=== PATIENT | female | born 1945 | race Caucasian/White ===

== ENCOUNTER 2018-03-24 01:51 | Inpatient (IN) | payer MEDICARE, OTHER ==
[~2018-03-24] VITALS: Ht 170.2 cm; Wt 62.1 kg
[2018-03-24 02:00] VITALS: BP 163/92
--- NOTE | 2018-03-24 02:00 | NUR ---
ADMITTED A 72 YEAR FEMALE FROM [facility] BROUGHT IN BY [facility] AROUND 0200. ADMITTED FOR DTS. SHE WAS AT COURT YESTERDAY, MADE SEVERAL STATEMENTS THAT SHE WOULD GO HOME AND OVERDOSE ON HER MEDICATIONS, WHEN THE SALESPERSON ART OB[employer]S REPORTED THAT THEY WERE TAKING HER HOUSE AWAY FROM HER. PLACED PATIENT IN BED COMFORTABLY. SHOWS NO S/S OF ANY PAIN AT THIS TIME, NO APPARENT DISTRESS NOTED. RESPIRATION EVEN, BREATHING PATTERN NON-LABORED, ABDOMEN SOFT. SKIN AND BODY ASSESSMENT/PHOTO REFUSED. NOTED DRESSING ON HER LEFT LEG. SHE WANTS HER FRIEND TO BE CALLED, NOTIFY THAT SHE IS ADMITTED. PATIENT IS AWAKE, ALERT, ORIENTED X4. LIVES ALONE, , FAMILY MEMBER IN [place]. PATIENT DEPRESSED, ANXIOUS, CALM, COOPERATIVE, RESPONDS VERY WELL TO QUESTIONNAIRES. DENIES SI/HI. PATIENT IS AMBULATORY, THOUGHT PROCESS INTACT, JUDGEMENT IMPAIRED. BELONGINGS WERE INVENTORIED AND CHECKED FOR CONTRABAND. PATIENT IS UNDER THE PSYCHIATRIC CARE OF DR. NEGRON AND MEDICAL CARE OF MASON GONZALEZ. VALUABLES PLACED TO SAFE. BED LOCKED AND PLACED ON LOWEST POSITION. WILL CONTINUE TO MONITOR Q 15 MINS FOR SAFETY WITH 1:1 SITTER AT THE BEDSIDE.
--- NOTE | 2018-03-24 03:17 | NUR ---
PATIENT REFUSED SKIN AND BODY ASSESSMENT, SHE STATED, " NO"
[2018-03-24] MEDS ORDERED: MAG HYDROX/AL HYDROX/SIMETH 30 ML UDC PO PRN (04:00)
[2018-03-24] MEDS ORDERED: MAGNESIUM HYDROXIDE 30 ML UDC PO PRN (04:00)
[2018-03-24] MEDS ORDERED: ACETAMINOPHEN 325 MG TABLET PO PRN (04:00)
[2018-03-24] MEDS ORDERED: DOXY100C41 PO (05:54)
[2018-03-24] MEDS ORDERED: FAMO20TA8 PO (05:54)
[2018-03-24] MEDS ORDERED: KETO10TA2 PO (05:54)
[2018-03-24] MEDS ORDERED: CARB-92 PO (05:54)
[2018-03-24] MEDS ORDERED: DULO60CA45 PO (05:54)
[2018-03-24] MEDS ORDERED: KETO120S3 TP ×2 (05:54)
[2018-03-24] MEDS ORDERED: MEMA28CA PO (05:54)
[2018-03-24] MEDS ORDERED: FISH1CAP16 PO (05:54)
[2018-03-24] MEDS ORDERED: LEVO50TA8 PO (05:54)
[2018-03-24] MEDS ORDERED: DOCU100C36 PO (05:54)
[2018-03-24] MEDS ORDERED: LEVO200T8 PO (05:54)
[2018-03-24] MEDS ORDERED: BISA5TAB56 PO (05:54)
[2018-03-24] MEDS ORDERED: MULT-213 PO (05:54)
[2018-03-24] MEDS ORDERED: LOTE5DRO3 EACHEYE (05:54)
[2018-03-24] MEDS ORDERED: ZINC50TA4 PO (05:54)
[2018-03-24] MEDS ORDERED: LINA72CA PO (05:54)
[2018-03-24] MEDS ORDERED: UMEC62.5 IH (05:54)
[2018-03-24] MEDS ORDERED: POLY17PO4 PO (05:54)
[2018-03-24] MEDS ORDERED: CYCL30DR OP (05:54)
[2018-03-24] MEDS ORDERED: LOSA25TA13 PO (05:54)
[2018-03-24] MEDS ORDERED: CHOL200013 PO (05:54)
[2018-03-24] MEDS ORDERED: PREG150C PO (05:54)
[2018-03-24] MEDS ORDERED: ASCO10007 PO (05:54)
[2018-03-24] MEDS ORDERED: LIDO30AD10 TP (05:54)
[2018-03-24] MEDS ORDERED: MONT10TA22 GT (05:54)
[2018-03-24] MEDS ORDERED: MELA3TAB PO (05:54)
[2018-03-24] MEDS ORDERED: LEVO5TAB13 PO (05:54)
[2018-03-24] MEDS ORDERED: TRAM50TA2 PO (05:54)
[2018-03-24] MEDS ORDERED: FERR325T23 PO (05:54)
[2018-03-24] MEDS ORDERED: NITR0.4T48 SL (05:54)
[2018-03-24] MEDS ORDERED: VITA200C22 PO (05:54)
--- NOTE | 2018-03-24 06:23 | NUR ---
BLAIR Arreola FOR MED RECON
--- NOTE | 2018-03-24 06:24 | NUR ---
FOR WOUND CONSULT TODAY 03/24/2018. PATIENT HAS WOUND ON HER LEG, REFUSED SKIN ASSESSMENT.
--- NOTE | 2018-03-24 06:24 | NUR ---
MRSA SCREEN NOT DONE, PATIENT REFUSED
--- NOTE | 2018-03-24 06:39 | NUR ---
REFUSED REPEAT VITALS THIS MORNING, NOT COOPERATIVE.
[2018-03-24] MEDS ORDERED: TRAMADOL HCL 50 MG TABLET PO PRN (07:00)
[2018-03-24] MEDS ORDERED: POLYETHYLENE GLYCOL 3350 17 GM POWD.PACK PO PRN (07:00)
[2018-03-24] MEDS ORDERED: BISACODYL (5 MG) 5 MG TABLET.DR PO PRN (08:00)
[2018-03-24] MEDS: CARBIDOPA/LEVODOPA 10/100 MG 1 UDTAB PO SCH ×3 (08:55→17:26)
[2018-03-24] MEDS: LEVOTHYROXINE SODIUM 50 MCG TABLET PO SCH (08:55)
[2018-03-24] MEDS: ASCORBIC ACID 500 MG TABLET PO SCH (08:55)
[2018-03-24 08:56] VITALS: BP 149/94
[2018-03-24] MEDS: CHOLECALCIFEROL 1,000 UNIT TABLET (VIT D3) PO SCH (08:56)
[2018-03-24] MEDS: FAMOTIDINE (20 MG) 20 MG TABLET PO SCH (08:56)
[2018-03-24] MEDS: DOCUSATE SODIUM 100 MG CAPSULE PO SCH ×2 (08:56→17:26)
[2018-03-24] MEDS: LOSARTAN POTASSIUM 25 MG TABLET PO SCH (08:56)
[2018-03-24] MEDS: LIDOCAINE 5% (PATCH) 1 EA PATCH TP SCH (08:58)
[2018-03-24] MEDS ORDERED: FERROUS SULFATE (325 MG) 325 MG/TAB TABLET PO SCH (09:00)
[2018-03-24] MEDS: Fluoxetine 10 mg capsule PO SCH (10:10)
[2018-03-24] MEDS: DULOXETINE HCL 30 MG CAPSULE.DR PO SCH (10:10)
--- NOTE | 2018-03-24 15:28 | NUR ---
RN-CO: Patient denied suicidal ideation. Patient stated she has plans in the future. She also denied hearing voices and visual hallucinations.
--- NOTE | 2018-03-24 15:37 | NUR ---
GPS/RN-NOTES PATIENT C/O LT.AND RT. LOWER BACK PAIN AND REQUESTING FOR PAIN MEDICATION. ULTRAM 50MG P.O GIVEN PRN ORDER. WILL CONT. 1:1 MONITORING FOR SAFETY.
[2018-03-24] MEDS: MONTELUKAST SODIUM (10MG) 10 MG TABLET PO SCH (17:26)
[2018-03-24 20:00] VITALS: BP 150/97
[2018-03-24 20:31] LABS: CREATININE 0.8 mg/dL (0.6-1.3); POTASSIUM 4.5 mmol/L (3.5-5.1)
[2018-03-24 20:37] LABS: BILIRUBIN,TOTAL 0.3 mg/dL (0.2-1.0); MAGNESIUM 2.4 mg/dL (1.8-2.4); PHOSPHORUS 4.3 mg/dL (2.5-4.9); TOTAL PROTEIN, SERUM 7.7 g/dL (6.4-8.2)
[2018-03-24 20:38] LABS: BASOPHILS # (AUTO) 0.1 /CMM (0.0-0.2); BASOPHILS % (AUTO) 0.9 % (0.0-2.0); EOSINOPHILS % (AUTO) 0.2 % (0.0-6.0); HEMATOCRIT 33 % (33-45); HEMOGLOBIN 10.9 g/dL (11.5-14.8); LYMPHOCYTES # (AUTO) 1.5 /CMM (0.8-4.8); LYMPHOCYTES % (AUTO) 19.3 % (20.0-44.0); MEAN CORPUSCULAR HGB CONC 33 g/dl (31.0-36.0); MEAN CORPUSCULAR VOLUME 85 fL (82-100); MONOCYTES # (AUTO) 0.7 /CMM (0.1-1.30); MONOCYTES % (AUTO) 8.7 % (2.0-12.0); NEUTROPHILS # (AUTO) 5.3 /CMM (1.8-8.9); NEUTROPHILS % (AUTO) 70.9 % (43.0-81.0); PLATELET COUNT (AUTO) 454 /CMM (150-450); RDW COEFFICIENT OF VARIATION 14.2 (11.5-15.0); RED BLOOD CELL COUNT(AUTO) 3.85 MIL/uL (4.0-5.2); WHITE BLOOD COUNT (AUTO) 7.5 K/uL (4.3-11.0)
--- NOTE | 2018-03-24 21:04 | NUR ---
GPS RN NOTE: PATIENT C/O GENERALIZED BODY PAIN 08/06, PER PATIENT ULTRAM WAS NOT EFFECTIVE, AND SHE USED TO TAKE NORCO AND OXYCODONE. NOTIFIED DR. GONZALEZ WITH ORDERS GIVEN NOTED AND CARRIED OUT. WILL CONTINUE TO MONITOR Q15MNS FOR SAFETY
[2018-03-24] MEDS: HYDROCODONE/APAP 5/325MG 1 EACH TABLET PO PRN (21:11)
[2018-03-25 08:00] VITALS: BP 167/95
[2018-03-25] MEDS: ASCORBIC ACID 500 MG TABLET PO SCH (08:03)
[2018-03-25] MEDS: CHOLECALCIFEROL 1,000 UNIT TABLET (VIT D3) PO SCH (08:03)
[2018-03-25] MEDS: DULOXETINE HCL 30 MG CAPSULE.DR PO SCH (08:04)
[2018-03-25] MEDS: FAMOTIDINE (20 MG) 20 MG TABLET PO SCH (08:04)
[2018-03-25] MEDS: Fluoxetine 10 mg capsule PO SCH (08:04)
[2018-03-25] MEDS: CARBIDOPA/LEVODOPA 10/100 MG 1 UDTAB PO SCH ×3 (08:04→17:13)
[2018-03-25] MEDS: LOSARTAN POTASSIUM 25 MG TABLET PO SCH (08:04)
[2018-03-25] MEDS: DOCUSATE SODIUM 100 MG CAPSULE PO SCH ×2 (08:04→17:13)
[2018-03-25] MEDS: LEVOTHYROXINE SODIUM 50 MCG TABLET PO SCH (08:04)
[2018-03-25] MEDS: LIDOCAINE 5% (PATCH) 1 EA PATCH TP SCH (08:05)
[2018-03-25] MEDS: DOXYCYCLINE HYCLATE (100 MG) 100 MG TABLET PO SCH ×2 (08:07→17:13)
[2018-03-25] MEDS: HYDROCODONE/APAP 5/325MG 1 EACH TABLET PO PRN (09:11)
[2018-03-25] MEDS: FERROUS SULFATE (325 MG) 325 MG/TAB TABLET PO SCH (12:31)
[2018-03-25] MEDS: AMLODIPINE BESYLATE 2.5 MG TABLET PO SCH (12:33)
[2018-03-25 15:29] LABS: BASOPHILS % (AUTO) 0.3 % (0.0-2.0); EOSINOPHILS % (AUTO) 0.1 % (0.0-6.0); HEMATOCRIT 36 % (33-45); HEMOGLOBIN 12.1 g/dL (11.5-14.8); LYMPHOCYTES # (AUTO) 1.1 /CMM (0.8-4.8); LYMPHOCYTES % (AUTO) 9.7 % (20.0-44.0); MEAN CORPUSCULAR HGB CONC 33 g/dl (31.0-36.0); MEAN CORPUSCULAR VOLUME 84 fL (82-100); MONOCYTES # (AUTO) 0.6 /CMM (0.1-1.30); MONOCYTES % (AUTO) 5.1 % (2.0-12.0); NEUTROPHILS # (AUTO) 9.2 /CMM (1.8-8.9); NEUTROPHILS % (AUTO) 84.8 % (43.0-81.0); PLATELET COUNT (AUTO) 493 /CMM (150-450); RDW COEFFICIENT OF VARIATION 14.1 (11.5-15.0); RED BLOOD CELL COUNT(AUTO) 4.31 MIL/uL (4.0-5.2); WHITE BLOOD COUNT (AUTO) 10.8 K/uL (4.3-11.0)
[2018-03-25 15:51] LABS: CHOLESTEROL 189 mg/dL (<200); HDL CHOLESTEROL 80 mg/dL (40-60); LDL 104 mg/dL (0-99); TRIGLYCERIDES 60 mg/dL (30-150)
[2018-03-25 15:55] VITALS: BP 150/95
[2018-03-25 15:57] LABS: ALBUMIN 3.1 g/dL (3.4-5.0); BILIRUBIN,TOTAL 0.4 mg/dL (0.2-1.0); CALCIUM, SERUM 9.1 mg/dL (8.5-10.1); CREATININE 0.6 mg/dL (0.6-1.3); POTASSIUM 4.1 mmol/L (3.5-5.1); TOTAL PROTEIN, SERUM 8.3 g/dL (6.4-8.2)
[2018-03-25 16:06] LABS: THYROID STIMULATING HORMONE 1.29 uIU/mL (0.358-3.74)
[2018-03-25 16:49] LABS: MAGNESIUM 1.8 mg/dL (1.8-2.4)
[2018-03-25] MEDS: MONTELUKAST SODIUM (10MG) 10 MG TABLET PO SCH (17:13)
[2018-03-25 20:12] VITALS: BP 160/93
[2018-03-25 21:30] VITALS: BP 156/82
[2018-03-26] MEDS: HYDROCODONE/APAP 5/325MG 1 EACH TABLET PO PRN (05:40)
[2018-03-26 08:00] VITALS: BP 157/90
[2018-03-26] MEDS: Fluoxetine 10 mg capsule PO SCH (08:21)
[2018-03-26] MEDS: DULOXETINE HCL 30 MG CAPSULE.DR PO SCH (08:21)
[2018-03-26] MEDS: CHOLECALCIFEROL 1,000 UNIT TABLET (VIT D3) PO SCH (08:21)
[2018-03-26] MEDS: ASCORBIC ACID 500 MG TABLET PO SCH (08:21)
[2018-03-26] MEDS: FAMOTIDINE (20 MG) 20 MG TABLET PO SCH (08:22)
[2018-03-26] MEDS: CARBIDOPA/LEVODOPA 10/100 MG 1 UDTAB PO SCH ×3 (08:22→16:02)
[2018-03-26] MEDS: LEVOTHYROXINE SODIUM 125 MCG TABLET PO SCH (08:22)
[2018-03-26] MEDS: DOXYCYCLINE HYCLATE (100 MG) 100 MG TABLET PO SCH ×2 (08:23→16:09)
[2018-03-26] MEDS: DOCUSATE SODIUM 100 MG CAPSULE PO SCH ×2 (08:23→16:09)
[2018-03-26] MEDS: LOSARTAN POTASSIUM 25 MG TABLET PO SCH (08:24)
[2018-03-26] MEDS: LIDOCAINE 5% (PATCH) 1 EA PATCH TP SCH (08:25)
[2018-03-26] MEDS: AMLODIPINE BESYLATE 2.5 MG TABLET PO SCH (08:25)
--- NOTE | 2018-03-26 12:00 | NUR ---
GPS/RN SPOKE WITH OBSTETRICS NURSE PRACTITIONER KALI REGRADING BP OF 155/90, STATED SHE WOULD ADJUST BP MEDICATION. AWAITING NEW ORDERS.
--- NOTE | 2018-03-26 12:08 | NUR ---
WOUND CARE CONSULT: PT PRESENTS WITH LEFT LOWER LEG REDNESS WITH LARGE SCALES OF SKIN AND IRRITATION, NO DRAINAGE. LEFT LOWER LEG HAS DRY SCABS. LARGE CALLUS NOTED TO RT FOOT. RT AND LEFT ARMS NOTED TO HAVE ABRASIONS (OPEN AND DRY). ALL ABOVE NOTED TO BE PRESENT ON ADMISSION. RECOMMENDATIONS MADE FOR OPEN ABRASIONS ON ARMS. RECOMMEND SURGICAL/PODIATRY CONSULT FOR LEGS AND FEET. PT IS CONTINENT AND AMBULATORY. WILL SEE PRN. JACOBS IN AGREEMENT WITH PLAN OF CARE. Addendum: 03/26/18 at 1212 by PARK HUTCHISON WNDNU Amended: Links added.
[2018-03-26] MEDS: FERROUS SULFATE (325 MG) 325 MG/TAB TABLET PO SCH (12:12)
[2018-03-26 13:21] LABS: BASOPHILS % (AUTO) 0.4 % (0.0-2.0); HEMATOCRIT 36 % (33-45); HEMOGLOBIN 11.9 g/dL (11.5-14.8); LYMPHOCYTES % (AUTO) 17.3 % (20.0-44.0); MEAN CORPUSCULAR HGB CONC 33 g/dl (31.0-36.0); MEAN CORPUSCULAR VOLUME 85 fL (82-100); MONOCYTES # (AUTO) 0.6 /CMM (0.1-1.30); MONOCYTES % (AUTO) 10.1 % (2.0-12.0); NEUTROPHILS # (AUTO) 4.1 /CMM (1.8-8.9); NEUTROPHILS % (AUTO) 72.2 % (43.0-81.0); PLATELET COUNT (AUTO) 351 /CMM (150-450); RED BLOOD CELL COUNT(AUTO) 4.26 MIL/uL (4.0-5.2); WHITE BLOOD COUNT (AUTO) 5.6 K/uL (4.3-11.0)
[2018-03-26 13:32] LABS: CALCIUM, SERUM 8.9 mg/dL (8.5-10.1); CREATININE 0.5 mg/dL (0.6-1.3); MAGNESIUM 1.8 mg/dL (1.8-2.4); POTASSIUM 4.6 mmol/L (3.5-5.1)
[2018-03-26 13:50] LABS: APPEARANCE,URINE CLEAR (CLEAR); BILIRUBIN,URINE NEGATIVE (NEGATIVE); BLOOD, URINE NEGATIVE Ery/uL (NEGATIVE); COLOR,URINE YELLOW (YELLOW); KETONES,URINE TRACE (NEGATIVE); LEUKOCYTE ESTERASE ,URINE NEGATIVE (NEGATIVE); NITRITE, URINE NEGATIVE (NEGATIVE); PROTEIN,URINE NEGATIVE (NEGATIVE); UGLUCOSE NEGATIVE (NEGATIVE); UROBILINOGEN,URINE 0.2 EU/dL (0.2)
[2018-03-26 14:08] LABS: BACTERIA,URINE Rare /HPF (None Seen); RBC,URINE 0-2 /HPF (0-2); SQUAMOUS EPITHELIAL CELL,UR Few /HPF (None Seen); WBC,URINE 0-2 /HPF (0-3)
[2018-03-26] MEDS: BACITRACIN/POLYMYXIN B 15 GM TUBE TP SCH (14:35)
[2018-03-26 16:00] VITALS: BP 137/80
--- NOTE | 2018-03-26 16:50 | NUR ---
SW spoke to Little from [facility] and obtained information regarding placement option for pt. Per Little, pt was accepted to [facility] [address] [facility] [address]; , Pablo Redding Ditching Machine Engineer. Pt also has a conservator, Raf Marques . Sw will follow up to ensure pt is safely and adequately discharged.
[2018-03-26] MEDS: MONTELUKAST SODIUM (10MG) 10 MG TABLET PO SCH (17:49)
[2018-03-26 19:36] VITALS: BP 147/86
[2018-03-27 07:23] LABS: CALCIUM, SERUM 8.6 mg/dL (8.5-10.1); CREATININE 0.6 mg/dL (0.6-1.3); MAGNESIUM 1.7 mg/dL (1.8-2.4); PHOSPHORUS 3.6 mg/dL (2.5-4.9); POTASSIUM 3.8 mmol/L (3.5-5.1)
[2018-03-27 07:33] LABS: BASOPHILS % (AUTO) 0.1 % (0.0-2.0); EOSINOPHILS % (AUTO) 0.2 % (0.0-6.0); HEMATOCRIT 35 % (33-45); HEMOGLOBIN 11.9 g/dL (11.5-14.8); LYMPHOCYTES # (AUTO) 1.2 /CMM (0.8-4.8); MEAN CORPUSCULAR HGB CONC 34 g/dl (31.0-36.0); MEAN CORPUSCULAR VOLUME 84 fL (82-100); MONOCYTES # (AUTO) 0.5 /CMM (0.1-1.30); MONOCYTES % (AUTO) 8.8 % (2.0-12.0); NEUTROPHILS # (AUTO) 4.4 /CMM (1.8-8.9); NEUTROPHILS % (AUTO) 71.9 % (43.0-81.0); PLATELET COUNT (AUTO) 443 /CMM (150-450); RDW COEFFICIENT OF VARIATION 13.5 (11.5-15.0); WHITE BLOOD COUNT (AUTO) 6.2 K/uL (4.3-11.0)
[2018-03-27 08:00] VITALS: BP 144/87
[2018-03-27] MEDS: FAMOTIDINE (20 MG) 20 MG TABLET PO SCH (08:42)
[2018-03-27] MEDS: Fluoxetine 10 mg capsule PO SCH (08:42)
[2018-03-27] MEDS: DOXYCYCLINE HYCLATE (100 MG) 100 MG TABLET PO SCH ×2 (08:43→16:10)
[2018-03-27] MEDS: AMLODIPINE BESYLATE 2.5 MG TABLET PO SCH (08:43)
[2018-03-27] MEDS: LOSARTAN POTASSIUM 25 MG TABLET PO SCH (08:43)
[2018-03-27] MEDS: LEVOTHYROXINE SODIUM 125 MCG TABLET PO SCH (08:43)
[2018-03-27] MEDS: CHOLECALCIFEROL 1,000 UNIT TABLET (VIT D3) PO SCH (08:43)
[2018-03-27] MEDS: DOCUSATE SODIUM 100 MG CAPSULE PO SCH ×2 (08:43→16:10)
[2018-03-27] MEDS: DULOXETINE HCL 30 MG CAPSULE.DR PO SCH (08:43)
[2018-03-27] MEDS: CARBIDOPA/LEVODOPA 10/100 MG 1 UDTAB PO SCH ×3 (08:44→16:10)
[2018-03-27] MEDS: ASCORBIC ACID 500 MG TABLET PO SCH (08:44)
[2018-03-27] MEDS: BACITRACIN/POLYMYXIN B 15 GM TUBE TP SCH (08:44)
[2018-03-27] MEDS: FLUTICASONE/VILANTEROL 1 EACH BLST.W.DEV IH SCH (08:44)
[2018-03-27] MEDS: LIDOCAINE 5% (PATCH) 1 EA PATCH TP SCH (08:44)
[2018-03-27] MEDS ORDERED: Magnesium 1GM/D5W 100ML PREMIX 100 ML IV SCH (09:32)
[2018-03-27] MEDS: FERROUS SULFATE (325 MG) 325 MG/TAB TABLET PO SCH (12:21)
--- NOTE | 2018-03-27 13:24 | NUR ---
Initial Discharge Plan: Pts home address on face sheet is [address] [place] [id number]; . Per psychiatric reports and conservator, Raf Marques, reports pt has lost her home and has been accepted to [facility] and will go there upon discharge. SW will follow up to ensure pt is safely and adequately discharged.
[2018-03-27] MEDS: HYDROCODONE/APAP 5/325MG 1 EACH TABLET PO PRN ×2 (14:50→21:27)
--- NOTE | 2018-03-27 14:50 | NUR ---
GPS/RN PATIENT REPORTS 8/10 GENERALIZED PAIN, ADMINISTERED NORCO 5/325 PER PT REQUEST, WILL CONTINUE TO MONITOR.
[2018-03-27 15:54] VITALS: BP 139/64
[2018-03-27] MEDS: MONTELUKAST SODIUM (10MG) 10 MG TABLET PO SCH (17:13)
[2018-03-27 20:17] VITALS: BP 128/74
[2018-03-28] MEDS: LEVOTHYROXINE SODIUM 125 MCG TABLET PO SCH (07:46)
[2018-03-28 08:00] VITALS: BP 148/95
[2018-03-28] MEDS: DOCUSATE SODIUM 100 MG CAPSULE PO SCH ×2 (09:00→16:07)
[2018-03-28] MEDS: DULOXETINE HCL 30 MG CAPSULE.DR PO SCH (09:17)
[2018-03-28] MEDS: Fluoxetine 10 mg capsule PO SCH (09:17)
[2018-03-28] MEDS: DOXYCYCLINE HYCLATE (100 MG) 100 MG TABLET PO SCH ×2 (09:17→16:06)
[2018-03-28] MEDS: FAMOTIDINE (20 MG) 20 MG TABLET PO SCH (09:17)
[2018-03-28] MEDS: ASCORBIC ACID 500 MG TABLET PO SCH (09:17)
[2018-03-28] MEDS: LOSARTAN POTASSIUM 25 MG TABLET PO SCH (09:17)
[2018-03-28] MEDS: CARBIDOPA/LEVODOPA 10/100 MG 1 UDTAB PO SCH ×3 (09:17→16:06)
[2018-03-28] MEDS: CHOLECALCIFEROL 1,000 UNIT TABLET (VIT D3) PO SCH (09:17)
[2018-03-28] MEDS: MAGNESIUM OXIDE 400 MG TABLET PO SCH (09:18)
[2018-03-28] MEDS: FLUTICASONE/VILANTEROL 1 EACH BLST.W.DEV IH SCH (09:18)
[2018-03-28] MEDS: AMLODIPINE BESYLATE 2.5 MG TABLET PO SCH (09:18)
[2018-03-28] MEDS: LIDOCAINE 5% (PATCH) 1 EA PATCH TP SCH (09:40)
[2018-03-28] MEDS: BACITRACIN/POLYMYXIN B 15 GM TUBE TP SCH (11:41)
[2018-03-28] MEDS: POVIDONE-IODINE OINT 28.4 GM TUBE TP SCH (11:41)
[2018-03-28] MEDS: FERROUS SULFATE (325 MG) 325 MG/TAB TABLET PO SCH (12:37)
[2018-03-28 16:00] VITALS: BP 119/64
[2018-03-28] MEDS: MONTELUKAST SODIUM (10MG) 10 MG TABLET PO SCH (17:04)
[2018-03-28 20:00] VITALS: BP 138/71
--- NOTE | 2018-03-28 20:00 | NUR ---
RN NOTES RECEIVED PT. AWAKE ON BED, SITTER AT BEDSIDE, BILATERAL LOWER EXTREMITIES WITH MULTIPLE SCAB AND REDNESS NOTED, AMBULATE WITH WALKER, [id number], CONTINUE TO MONITOR
[2018-03-28 20:09] VITALS: BP 138/71
[2018-03-28] MEDS: HYDROCODONE/APAP 5/325MG 1 EACH TABLET PO PRN (21:24)
--- NOTE | 2018-03-28 21:27 | NUR ---
RN NOTES COMPLAINED OF TERRIBLE BACK PAIN, PT. HAS LIDODERM PATCH ON HER BACK BUT REFUSED TO BE REMOVED , EXPLAINED THAT IT'S NEED TO BE REMOVED AFTER 12HRS, BUT PT'S TILL REFUSING TO TAKE IT OFF. PT IS ASKING FOR NORCO , NORCO 5/325 MG PO GIVEN ORDERED, V/.S STABLE
[2018-03-29 08:15] VITALS: BP 156/85
[2018-03-29] MEDS: ASCORBIC ACID 500 MG TABLET PO SCH (08:15)
[2018-03-29] MEDS: LEVOTHYROXINE SODIUM 125 MCG TABLET PO SCH (08:15)
[2018-03-29] MEDS: FAMOTIDINE (20 MG) 20 MG TABLET PO SCH (08:15)
[2018-03-29] MEDS: Fluoxetine 10 mg capsule PO SCH (08:15)
[2018-03-29] MEDS: CARBIDOPA/LEVODOPA 10/100 MG 1 UDTAB PO SCH ×3 (08:15→16:22)
[2018-03-29] MEDS: DOCUSATE SODIUM 100 MG CAPSULE PO SCH ×2 (08:16→16:22)
[2018-03-29] MEDS: AMLODIPINE BESYLATE 2.5 MG TABLET PO SCH (08:16)
[2018-03-29] MEDS: DOXYCYCLINE HYCLATE (100 MG) 100 MG TABLET PO SCH ×2 (08:16→16:22)
[2018-03-29] MEDS: CHOLECALCIFEROL 1,000 UNIT TABLET (VIT D3) PO SCH (08:16)
[2018-03-29] MEDS: DULOXETINE HCL 30 MG CAPSULE.DR PO SCH (08:16)
[2018-03-29] MEDS: MAGNESIUM OXIDE 400 MG TABLET PO SCH (08:16)
[2018-03-29] MEDS: LIDOCAINE 5% (PATCH) 1 EA PATCH TP SCH (08:17)
[2018-03-29] MEDS: LOSARTAN POTASSIUM 25 MG TABLET PO SCH (08:17)
[2018-03-29] MEDS: BACITRACIN/POLYMYXIN B 15 GM TUBE TP SCH (08:18)
[2018-03-29] MEDS: FLUTICASONE/VILANTEROL 1 EACH BLST.W.DEV IH SCH (08:18)
[2018-03-29] MEDS: POVIDONE-IODINE OINT 28.4 GM TUBE TP SCH (08:18)
[2018-03-29] MEDS: FERROUS SULFATE (325 MG) 325 MG/TAB TABLET PO SCH (12:20)
--- NOTE | 2018-03-29 13:29 | NUR ---
MARISSA spoke to Pablo Redding from [facility] [address] [facility] [address]; Admissions who stated that pt had been accepted to facility. MARISSA will work with pt, treating team and others to ensure pt is safely and adequately discharged. Addendum: 03/29/18 at 1340 by OBDULIO ANN 03/27/2018
[2018-03-29] MEDS: HYDROCODONE/APAP 5/325MG 1 EACH TABLET PO PRN (15:31)
[2018-03-29 15:51] VITALS: BP 134/80
[2018-03-29] MEDS: MONTELUKAST SODIUM (10MG) 10 MG TABLET PO SCH (17:30)
[2018-03-29 20:00] VITALS: BP 121/65
[2018-03-30 08:00] VITALS: BP 135/71
[2018-03-30] MEDS: LEVOTHYROXINE SODIUM 125 MCG TABLET PO SCH (08:26)
[2018-03-30] MEDS: Fluoxetine 10 mg capsule PO SCH (08:29)
[2018-03-30] MEDS: DOXYCYCLINE HYCLATE (100 MG) 100 MG TABLET PO SCH ×2 (08:30→16:43)
[2018-03-30] MEDS: CHOLECALCIFEROL 1,000 UNIT TABLET (VIT D3) PO SCH (08:30)
[2018-03-30] MEDS: CARBIDOPA/LEVODOPA 10/100 MG 1 UDTAB PO SCH ×3 (08:30→16:43)
[2018-03-30] MEDS: MAGNESIUM OXIDE 400 MG TABLET PO SCH (08:30)
[2018-03-30] MEDS: ASCORBIC ACID 500 MG TABLET PO SCH (08:30)
[2018-03-30] MEDS: DOCUSATE SODIUM 100 MG CAPSULE PO SCH ×2 (08:30→16:43)
[2018-03-30] MEDS: FAMOTIDINE (20 MG) 20 MG TABLET PO SCH (08:30)
[2018-03-30] MEDS: DULOXETINE HCL 30 MG CAPSULE.DR PO SCH (08:30)
[2018-03-30] MEDS: LIDOCAINE 5% (PATCH) 1 EA PATCH TP SCH (08:31)
[2018-03-30] MEDS: LOSARTAN POTASSIUM 25 MG TABLET PO SCH (08:32)
[2018-03-30] MEDS: FLUTICASONE/VILANTEROL 1 EACH BLST.W.DEV IH SCH (08:32)
[2018-03-30] MEDS: AMLODIPINE BESYLATE 2.5 MG TABLET PO SCH (08:32)
[2018-03-30] MEDS: POVIDONE-IODINE OINT 28.4 GM TUBE TP SCH (09:16)
[2018-03-30] MEDS: BACITRACIN/POLYMYXIN B 15 GM TUBE TP SCH (09:16)
--- NOTE | 2018-03-30 10:27 | NUR ---
Pts discharge on this date was cancelled. MARISSA contacted Cristina from [facility] to cancel pts transportation which was scheduled through [facility]. In addition MARISSA spoke to pts conservator, Raf Marques, and Pablo Redding, Store Leader from [facility] to provide them with an update regarding pts discharge; which they were in agreement. In addition, MARISSA faxed inquiry to [facility], attention to Pablo (fax # [phone]). MARISSA will discuss with Dr. Jean Baptiste, pts psychiatrist to inform discharge plan.
[2018-03-30] MEDS: HYDROCODONE/APAP 5/325MG 1 EACH TABLET PO PRN (11:33)
--- NOTE | 2018-03-30 11:34 | NUR ---
GPS/RN-NOTES PATIENT C/O 10/10 GENERALIZED BODY PAIN AND REQUESTING FOR PAIN MEDICATION. NORCO 5/325MG 1 TAB. P.O GIVEN PRN ORDER. WILL CONT MONITORING FOR SAFETY.
[2018-03-30] MEDS: FERROUS SULFATE (325 MG) 325 MG/TAB TABLET PO SCH (12:03)
--- NOTE | 2018-03-30 12:54 | NUR ---
MARISSA spoke to Little from [facility] to reschedule pts transportation. MARISSA Informed Little that pt would most likely discharge on 04/02/18 however discharge was yet to be confirmed by pts psychiatrist, Dr. Jean Baptiste. Little agreed to have [facility] transport on stand applications systems engineer for Monday. MARISSA will follow up with Little on Monday to confirm transportation by 9:15 am. MARISSA also provided Little with cell phone # in order to ensure pt is appropriately discharged.
[2018-03-30 16:53] VITALS: BP 124/76
[2018-03-30] MEDS: MONTELUKAST SODIUM (10MG) 10 MG TABLET PO SCH (17:37)
[2018-03-30 20:00] VITALS: BP 141/72
--- NOTE | 2018-03-30 21:40 | NUR ---
PT HAS EPISODES OF SCRATCHING HER LOWER LEGS. PROVIDE AND EDUCATE PT REGARDING SKIN MGT. KEPT CLEAN AND DRY. ENDORSE TO NEXT SHIFT NURSE FOR ANN.
[2018-03-31 08:07] VITALS: BP 157/99
[2018-03-31] MEDS: LEVOTHYROXINE SODIUM 125 MCG TABLET PO SCH (08:27)
[2018-03-31] MEDS: DULOXETINE HCL 30 MG CAPSULE.DR PO SCH (08:27)
[2018-03-31] MEDS: DOXYCYCLINE HYCLATE (100 MG) 100 MG TABLET PO SCH ×2 (08:27→16:47)
[2018-03-31] MEDS: CHOLECALCIFEROL 1,000 UNIT TABLET (VIT D3) PO SCH (08:27)
[2018-03-31] MEDS: FAMOTIDINE (20 MG) 20 MG TABLET PO SCH (08:27)
[2018-03-31] MEDS: Fluoxetine 10 mg capsule PO SCH (08:28)
[2018-03-31] MEDS: CARBIDOPA/LEVODOPA 10/100 MG 1 UDTAB PO SCH ×3 (08:28→16:47)
[2018-03-31] MEDS: MAGNESIUM OXIDE 400 MG TABLET PO SCH (08:28)
[2018-03-31] MEDS: AMLODIPINE BESYLATE 2.5 MG TABLET PO SCH (08:28)
[2018-03-31] MEDS: LOSARTAN POTASSIUM 25 MG TABLET PO SCH (08:28)
[2018-03-31] MEDS: DOCUSATE SODIUM 100 MG CAPSULE PO SCH ×2 (08:28→16:47)
[2018-03-31] MEDS: ASCORBIC ACID 500 MG TABLET PO SCH (08:28)
[2018-03-31] MEDS: LIDOCAINE 5% (PATCH) 1 EA PATCH TP SCH (08:30)
[2018-03-31] MEDS: FLUTICASONE/VILANTEROL 1 EACH BLST.W.DEV IH SCH (08:50)
[2018-03-31] MEDS: POVIDONE-IODINE OINT 28.4 GM TUBE TP SCH (09:56)
[2018-03-31] MEDS: BACITRACIN/POLYMYXIN B 15 GM TUBE TP SCH (09:56)
[2018-03-31] MEDS: FERROUS SULFATE (325 MG) 325 MG/TAB TABLET PO SCH (12:04)
[2018-03-31 16:21] VITALS: BP 144/79
[2018-03-31] MEDS: MONTELUKAST SODIUM (10MG) 10 MG TABLET PO SCH (18:03)
[2018-03-31 19:59] LABS: URINE SODIUM, RANDOM 113 mmol/l (40-220)
[2018-03-31 20:00] VITALS: BP 159/79
[2018-03-31 20:04] LABS: OSMOLALITY,URINE 628 mOS/kg (340-1090)
[2018-04-01 06:43] LABS: CALCIUM, SERUM 8.5 mg/dL (8.5-10.1); CREATININE 0.5 mg/dL (0.6-1.3); MAGNESIUM 1.8 mg/dL (1.8-2.4); PHOSPHORUS 3.9 mg/dL (2.5-4.9); POTASSIUM 4.3 mmol/L (3.5-5.1)
[2018-04-01 06:45] LABS: THYROID STIMULATING HORMONE 4.476 uIU/mL (0.358-3.74); URIC ACID 1.9 mg/dL (2.6-7.2)
--- NOTE | 2018-04-01 07:30 | NUR ---
GPS RN NOTES PATIENT RECEIVED RESTING INSIDE ROOM, AWAKE, ALERT AND ORIENTED. VERBALLY RESPONSIVE AND RESPONDS TO VERBAL AND TACTILE STIMULI. BREATHING EVEN AND UNLABORED. DENIES ANY PAIN OR DISCOMFORT AT THIS TIME. PATIENT CALM AND RELAXED. NO CHANGES IN LOC NOTED. WILL CONTINUE TO MONITOR. BED LOCKED AND IN LOW POSITION. BILATERAL UPPER SIDE RAILS UP AND LOCKED.
[2018-04-01] MEDS: LEVOTHYROXINE SODIUM 125 MCG TABLET PO SCH (08:17)
[2018-04-01] MEDS: AMLODIPINE BESYLATE 2.5 MG TABLET PO SCH (08:18)
[2018-04-01] MEDS: DOCUSATE SODIUM 100 MG CAPSULE PO SCH ×2 (08:18→17:11)
[2018-04-01] MEDS: Fluoxetine 10 mg capsule PO SCH (08:18)
[2018-04-01] MEDS: MAGNESIUM OXIDE 400 MG TABLET PO SCH (08:18)
[2018-04-01] MEDS: DOXYCYCLINE HYCLATE (100 MG) 100 MG TABLET PO SCH ×2 (08:18→17:11)
[2018-04-01] MEDS: DULOXETINE HCL 30 MG CAPSULE.DR PO SCH (08:18)
[2018-04-01] MEDS: LIDOCAINE 5% (PATCH) 1 EA PATCH TP SCH (08:19)
[2018-04-01] MEDS: FAMOTIDINE (20 MG) 20 MG TABLET PO SCH (08:19)
[2018-04-01] MEDS: LOSARTAN POTASSIUM 25 MG TABLET PO SCH (08:19)
[2018-04-01] MEDS: CHOLECALCIFEROL 1,000 UNIT TABLET (VIT D3) PO SCH (08:19)
[2018-04-01] MEDS: CARBIDOPA/LEVODOPA 10/100 MG 1 UDTAB PO SCH ×3 (08:19→17:11)
[2018-04-01] MEDS: ASCORBIC ACID 500 MG TABLET PO SCH (08:19)
[2018-04-01 08:25] VITALS: BP 149/73
[2018-04-01] MEDS: POVIDONE-IODINE OINT 28.4 GM TUBE TP SCH (08:29)
[2018-04-01] MEDS: BACITRACIN/POLYMYXIN B 15 GM TUBE TP SCH (08:29)
[2018-04-01] MEDS: FLUTICASONE/VILANTEROL 1 EACH BLST.W.DEV IH SCH (08:29)
[2018-04-01] MEDS: FERROUS SULFATE (325 MG) 325 MG/TAB TABLET PO SCH (12:11)
[2018-04-01 16:31] VITALS: BP 137/77
[2018-04-01] MEDS: HYDROCODONE/APAP 5/325MG 1 EACH TABLET PO PRN (17:11)
[2018-04-01] MEDS: MONTELUKAST SODIUM (10MG) 10 MG TABLET PO SCH (17:11)
--- NOTE | 2018-04-01 17:13 | NUR ---
GPS RN NOTES PATIENT WITH C/O GENERALIZED BODY PAIN WITH SCALE OF 7/10 IN PAIN SCALE. ATTEMPTED NON-PHARMACOLOGICAL INTERVENTION BUT WITH NO SUCCESS OF RELIEVING PAIN. GIVEN NORCO ORDERED PRN. WILL CONTINUE TO MONITOR
[2018-04-01 20:00] VITALS: BP 149/68
[2018-04-01 23:00] VITALS: BP 132/70
--- NOTE | 2018-04-02 03:22 | NUR ---
RN GPS NOTES NOTIFIED INK JET OPERATOR DR. LOPEZ NA+ LEVEL 120 , NEW ORDERS RECEIVED BMP FOR AM, AND HOLD D/C PT. FOR UNTIL MEDICALLY CLEAR , NEW ORDERS RECEIVED AND CARRIED OUT.
[2018-04-02 07:35] LABS: CALCIUM, SERUM 8.8 mg/dL (8.5-10.1); CREATININE 0.6 mg/dL (0.6-1.3); POTASSIUM 3.9 mmol/L (3.5-5.1)
[2018-04-02 08:00] VITALS: BP 159/90
--- NOTE | 2018-04-02 10:49 | NUR ---
MARISSA called Little from [facility] to confirm transportation for pt, after getting clearance from Dr. Jean Baptiste. MARISSA will ensure pt is safely discharged.
[2018-04-02 10:50] LABS: CALCIUM, SERUM 8.3 mg/dL (8.5-10.1); CREATININE 0.6 mg/dL (0.6-1.3); POTASSIUM 3.7 mmol/L (3.5-5.1)
--- NOTE | 2018-04-02 10:52 | NUR ---
MARISSA called Little from [facility] to cancel transportation. Pts discharge was placed on hold by medical doctor based on medical concerns (i.e high sodium levels). MARISSA also contacted Raf Marques, pts conservator to inform of discharge change.
[2018-04-02 11:00] LABS: APPEARANCE,URINE CLEAR (CLEAR); BILIRUBIN,URINE NEGATIVE (NEGATIVE); BLOOD, URINE NEGATIVE Ery/uL (NEGATIVE); COLOR,URINE YELLOW (YELLOW); KETONES,URINE NEGATIVE (NEGATIVE); LEUKOCYTE ESTERASE ,URINE NEGATIVE (NEGATIVE); NITRITE, URINE NEGATIVE (NEGATIVE); PH,URINE 6.5 (5.0-8.0); PROTEIN,URINE NEGATIVE (NEGATIVE); UGLUCOSE NEGATIVE (NEGATIVE); UROBILINOGEN,URINE 0.2 EU/dL (0.2)
[2018-04-02] MEDS: LIDOCAINE 5% (PATCH) 1 EA PATCH TP SCH (12:14)
[2018-04-02] MEDS: DULOXETINE HCL 30 MG CAPSULE.DR PO SCH (12:14)
[2018-04-02] MEDS: FAMOTIDINE (20 MG) 20 MG TABLET PO SCH (12:14)
[2018-04-02] MEDS: LOSARTAN POTASSIUM 25 MG TABLET PO SCH (12:15)
[2018-04-02] MEDS: MAGNESIUM OXIDE 400 MG TABLET PO SCH (12:16)
[2018-04-02] MEDS: DOCUSATE SODIUM 100 MG CAPSULE PO SCH (12:16)
[2018-04-02 12:17] VITALS: BP 159/90
[2018-04-02] MEDS: Fluoxetine 10 mg capsule PO SCH (12:17)
[2018-04-02] MEDS: CARBIDOPA/LEVODOPA 10/100 MG 1 UDTAB PO SCH (12:17)
[2018-04-02] MEDS: AMLODIPINE BESYLATE 2.5 MG TABLET PO SCH (12:17)
[2018-04-02] MEDS: DOXYCYCLINE HYCLATE (100 MG) 100 MG TABLET PO SCH (12:17)
[2018-04-02] MEDS: ASCORBIC ACID 500 MG TABLET PO SCH (12:18)
[2018-04-02] MEDS: FLUTICASONE/VILANTEROL 1 EACH BLST.W.DEV IH SCH (12:20)
[2018-04-02] MEDS: POVIDONE-IODINE OINT 28.4 GM TUBE TP SCH (12:20)
[2018-04-02] MEDS: BACITRACIN/POLYMYXIN B 15 GM TUBE TP SCH (12:20)
[2018-04-02] MEDS: CHOLECALCIFEROL 1,000 UNIT TABLET (VIT D3) PO SCH (12:24)
[2018-04-02] MEDS: LEVOTHYROXINE SODIUM 125 MCG TABLET PO SCH (12:24)
[2018-04-02] MEDS: FERROUS SULFATE (325 MG) 325 MG/TAB TABLET PO SCH (12:24)
--- NOTE | 2018-04-02 13:20 | NUR ---
[id number]: PT IS 72 YEARS OLD FEMALE DISCHARGE TO [facility] DUE TO HYPONATREMIA. PT IS ALERT AND ORIENTED X3-4. NO ACUTE DISTRESS NOTED AT THIS TIME. NO COMPLAIN OF PAIN OR DISCOMFORT. BREATHING IS EVEN AND UNLABORED. PT DENIES SI/HI/AVH. EDUCATED PT ABOUT AFTER CARE PLAN AND COPY PROVIDED. RETURN PERSONAL BELONGINGS TO PT. MEDICATIONS RECONCILED WITH DR. NEGRON AND MASON FARAH. REPORT GIVEN ILONA FOR CONTINUITY OF CARE. PT SIGNED DISCHARGE PAPERWORK. PT REFUSED SKIN ASSESSMENT. PT LEFT THE UNIT ACCOMPANIED BY STAFF.
[2018-04-02] MEDS ORDERED: IV NS 0.9% 1,000 ML IV PRN (13:37)
[2018-04-02] MEDS ORDERED: ONDANSETRON HCL/PF 4 MG/2 ML VIAL IVP PRN (14:00)
[2018-04-02] MEDS ORDERED: MAGNESIUM HYDROXIDE 30 ML UDC PO PRN (14:00)
[2018-04-02] MEDS ORDERED: MAG HYDROX/AL HYDROX/SIMETH 30 ML UDC PO PRN (14:00)
[2018-04-02] MEDS ORDERED: Z GUARD REMEDY 2 OZ OINT TP PRN (14:00)
[2018-04-02] MEDS ORDERED: ACETAMINOPHEN 325 MG TABLET PO PRN (14:00)
[2018-04-03 06:44] LABS: OSMOLALITY,URINE 587 mOS/kg (340-1090)
[2018-04-03 06:49] LABS: URINE SODIUM, RANDOM 102 mmol/l (40-220)
[2018-04-03] MEDS ORDERED: PANTOPRAZOLE 40 MG TABLET.DR PO SCH (07:30)
== END 2018-04-02 13:20 | disposition short-term general hospital (02) | DRG 876 ==
LOC: GPS 01:51
PROVIDERS: ADMIT Psychiatry & Neurology Psychiatry; ATTEND Psychiatry & Neurology Psychiatry
PROC: 0JBP0ZZ Excision of Left Lower Leg Subcutaneous Tissue and Fascia, Open Approach (ICD-10-PCS; principal; 2018-03-29)
DX: F33.2 Major depressive disorder, recurrent severe without psychotic features (principal); F02.80 Dementia in other diseases classified elsewhere, unspecified severity, without behavioral disturbance, psychotic disturbance, mood disturbance, and anxiety; I11.0 Hypertensive heart disease with heart failure; A52.16 Charcot's arthropathy (tabetic); G20 Parkinson's disease; E87.1 Hypo-osmolality and hyponatremia; I50.32 Chronic diastolic (congestive) heart failure; L03.116 Cellulitis of left lower limb; R45.851 Suicidal ideations; E03.9 Hypothyroidism, unspecified; Z87.891 Personal history of nicotine dependence; K21.9 Gastro-esophageal reflux disease without esophagitis; M79.7 Fibromyalgia; L84 Corns and callosities; L85.3 Xerosis cutis; I87.8 Other specified disorders of veins; T14.8XXA Other injury of unspecified body region, initial encounter; X58.XXXA Exposure to other specified factors, initial encounter; Y92.9 Unspecified place or not applicable; J44.9 Chronic obstructive pulmonary disease, unspecified
CPT/HCPCS: 36415; 80048-TC; 80053-TC; 80061-TC; 81000-TC; 83735-TC; 83935-TC; 84100-TC; 84300-TC; 84443-TC; 84550-TC; 85025-TC; 87086-TC; 93307-TC; A6253; A6402; A6403; J3475; J7030

== ENCOUNTER 2018-04-02 13:55 | Inpatient (IN) | payer MEDICARE, OTHER ==
[~2018-04-02] VITALS: Ht 170.2 cm; Wt 59.0 kg
[~2018-04-02 13:55] MED LIST: ASCO10007 PO; BISA5TAB56 PO; CARB-92 PO; CHOL200013 PO; CYCL30DR OP; DOCU100C36 PO; DOXY100C41 PO; DULO60CA45 PO; FAMO20TA8 PO; FERR325T23 PO; FISH1CAP16 PO; KETO10TA2 PO; KETO120S3 TP; LEVO200T8 PO; LEVO50TA8 PO; LEVO5TAB13 PO; LIDO30AD10 TP; LINA72CA PO; LOSA25TA13 PO; LOTE5DRO3 EACHEYE; MELA3TAB PO; MEMA28CA PO; MONT10TA22 GT; MULT-213 PO; NITR0.4T48 SL; POLY17PO4 PO; PREG150C PO; TRAM50TA2 PO; UMEC62.5 IH; VITA200C22 PO; ZINC50TA4 PO
[2018-04-02] MEDS ORDERED: IV NS 0.9% 1,000 ML IV PRN (13:58)
[2018-04-02] MEDS ORDERED: MAGNESIUM HYDROXIDE 30 ML UDC PO PRN (14:00)
[2018-04-02] MEDS ORDERED: Z GUARD REMEDY 2 OZ OINT TP PRN (14:00)
[2018-04-02] MEDS ORDERED: MAG HYDROX/AL HYDROX/SIMETH 30 ML UDC PO PRN (14:00)
[2018-04-02] MEDS ORDERED: ONDANSETRON HCL/PF 4 MG/2 ML VIAL IVP PRN (14:00)
[2018-04-02] MEDS ORDERED: NITROGLYCERIN 0.4 MG/TAB BOTTLE SL ONE (14:30)
[2018-04-02 14:38] VITALS: BP 136/73
[2018-04-02] MEDS ORDERED: FUROSEMIDE 20 MG/2 ML VIAL IV ONE (15:00)
[2018-04-02] MEDS: DOCUSATE SODIUM 100 MG CAPSULE PO SCH (16:19)
[2018-04-02] MEDS: MONTELUKAST SODIUM (10MG) 10 MG TABLET GT SCH (17:16)
[2018-04-02] MEDS ORDERED: Medication Not On Formulary EA (Melatonin 1 TAB) PO SCH (18:00)
[2018-04-02] MEDS: BACI/NEOM/POLY B OINT PKT 1 UDPKT PACKET TP SCH (18:42)
[2018-04-02] MEDS: ACETAMINOPHEN 325 MG TABLET PO PRN (19:55)
[2018-04-02 20:00] VITALS: BP 139/67
[2018-04-02] MEDS ORDERED: BISACODYL (5 MG) 5 MG TABLET.DR PO PRN (22:00)
[2018-04-02] MEDS: cetrizine 10 MG TABLET PO SCH (22:38)
[2018-04-03 06:44] LABS: OSMOLALITY,URINE 544 mOS/kg (340-1090)
[2018-04-03 06:50] LABS: URINE SODIUM, RANDOM 23 mmol/l (40-220)
[2018-04-03 07:01] LABS: CALCIUM, SERUM 8.3 mg/dL (8.5-10.1); CREATININE 0.7 mg/dL (0.6-1.3); POTASSIUM 3.8 mmol/L (3.5-5.1); URIC ACID 2.8 mg/dL (2.6-7.2)
[2018-04-03 07:36] LABS: BASOPHILS % (AUTO) 0.3 % (0.0-2.0); EOSINOPHILS % (AUTO) 0.1 % (0.0-6.0); HEMATOCRIT 34 % (33-45); HEMOGLOBIN 11.4 g/dL (11.5-14.8); LYMPHOCYTES # (AUTO) 1.1 /CMM (0.8-4.8); LYMPHOCYTES % (AUTO) 20.8 % (20.0-44.0); MEAN CORPUSCULAR HGB CONC 33 g/dl (31.0-36.0); MEAN CORPUSCULAR VOLUME 84 fL (82-100); MONOCYTES # (AUTO) 0.7 /CMM (0.1-1.30); MONOCYTES % (AUTO) 13.2 % (2.0-12.0); NEUTROPHILS # (AUTO) 3.4 /CMM (1.8-8.9); NEUTROPHILS % (AUTO) 65.6 % (43.0-81.0); PLATELET COUNT (AUTO) 406 /CMM (150-450); RDW COEFFICIENT OF VARIATION 14.2 (11.5-15.0); RED BLOOD CELL COUNT(AUTO) 4.09 MIL/uL (4.0-5.2); WHITE BLOOD COUNT (AUTO) 5.2 K/uL (4.3-11.0)
[2018-04-03 08:00] VITALS: BP 158/82
[2018-04-03 08:05] LABS: PHOSPHORUS 4.4 mg/dL (2.5-4.9); THYROID STIMULATING HORMONE 3.642 uIU/mL (0.358-3.74)
[2018-04-03] MEDS: PANTOPRAZOLE 40 MG TABLET.DR PO SCH (08:19)
[2018-04-03] MEDS: DOCUSATE SODIUM 100 MG CAPSULE PO SCH ×2 (08:19→17:28)
[2018-04-03] MEDS: LEVOTHYROXINE SODIUM 100 MCG TABLET PO SCH (08:19)
[2018-04-03] MEDS: LEVOTHYROXINE SODIUM 50 MCG TABLET PO SCH (08:19)
[2018-04-03] MEDS: FERROUS SULFATE (325 MG) 325 MG/TAB TABLET PO SCH (08:20)
[2018-04-03] MEDS: ASCORBIC ACID 500 MG TABLET PO SCH (08:21)
[2018-04-03] MEDS: DULOXETINE HCL 30 MG CAPSULE.DR PO SCH (08:21)
[2018-04-03] MEDS: CHOLECALCIFEROL 1,000 UNIT TABLET (VIT D3) PO SCH (08:21)
[2018-04-03] MEDS: LOSARTAN POTASSIUM 25 MG TABLET PO SCH (08:21)
[2018-04-03] MEDS: LIDOCAINE 5% (PATCH) 1 EA PATCH TP SCH (08:23)
[2018-04-03] MEDS ORDERED: LOTEPREDNOL ETABONATE EACHEYE SCH (09:00)
[2018-04-03] MEDS: BACI/NEOM/POLY B OINT PKT 1 UDPKT PACKET TP SCH (09:29)
[2018-04-03] MEDS: ACETAMINOPHEN 325 MG TABLET PO PRN (09:30)
[2018-04-03] MEDS: FLUTICASONE/VILANTEROL 1 EACH BLST.W.DEV IH SCH (11:20)
[2018-04-03 16:00] VITALS: BP 148/73
[2018-04-03] MEDS: MONTELUKAST SODIUM (10MG) 10 MG TABLET GT SCH (17:28)
[2018-04-03] MEDS: MUPIROCIN OINT 2% 22 GM TUBE SCH (19:13)
[2018-04-03 20:00] VITALS: BP 117/60
[2018-04-03] MEDS: cetrizine 10 MG TABLET PO SCH (21:41)
[2018-04-04 06:56] LABS: BASOPHILS % (AUTO) 0.4 % (0.0-2.0); EOSINOPHILS % (AUTO) 0.4 % (0.0-6.0); HEMATOCRIT 34 % (33-45); HEMOGLOBIN 11.6 g/dL (11.5-14.8); LYMPHOCYTES # (AUTO) 1.1 /CMM (0.8-4.8); MEAN CORPUSCULAR HGB CONC 34 g/dl (31.0-36.0); MEAN CORPUSCULAR VOLUME 83 fL (82-100); MONOCYTES # (AUTO) 0.7 /CMM (0.1-1.30); MONOCYTES % (AUTO) 14.2 % (2.0-12.0); NEUTROPHILS # (AUTO) 3.2 /CMM (1.8-8.9); PLATELET COUNT (AUTO) 385 /CMM (150-450); RDW COEFFICIENT OF VARIATION 13.8 (11.5-15.0); WHITE BLOOD COUNT (AUTO) 5.1 K/uL (4.3-11.0)
[2018-04-04 07:12] LABS: CALCIUM, SERUM 8.1 mg/dL (8.5-10.1); CREATININE 0.6 mg/dL (0.6-1.3); MAGNESIUM 1.7 mg/dL (1.8-2.4); PHOSPHORUS 3.9 mg/dL (2.5-4.9); POTASSIUM 4.1 mmol/L (3.5-5.1)
[2018-04-04] MEDS: PANTOPRAZOLE 40 MG TABLET.DR PO SCH (07:45)
[2018-04-04 08:00] VITALS: BP 137/66
[2018-04-04] MEDS: DULOXETINE HCL 30 MG CAPSULE.DR PO SCH (08:24)
[2018-04-04] MEDS: LEVOTHYROXINE SODIUM 50 MCG TABLET PO SCH (08:24)
[2018-04-04] MEDS: FERROUS SULFATE (325 MG) 325 MG/TAB TABLET PO SCH (08:24)
[2018-04-04] MEDS: DOCUSATE SODIUM 100 MG CAPSULE PO SCH ×2 (08:24→17:12)
[2018-04-04] MEDS: CHOLECALCIFEROL 1,000 UNIT TABLET (VIT D3) PO SCH (08:24)
[2018-04-04] MEDS: LEVOTHYROXINE SODIUM 100 MCG TABLET PO SCH (08:25)
[2018-04-04] MEDS: ASCORBIC ACID 500 MG TABLET PO SCH (08:25)
[2018-04-04] MEDS: LOSARTAN POTASSIUM 25 MG TABLET PO SCH (08:25)
[2018-04-04] MEDS: FLUTICASONE/VILANTEROL 1 EACH BLST.W.DEV IH SCH (08:34)
[2018-04-04] MEDS: BACI/NEOM/POLY B OINT PKT 1 UDPKT PACKET TP SCH (08:35)
[2018-04-04] MEDS: MUPIROCIN OINT 2% 22 GM TUBE SCH ×2 (08:35→21:12)
[2018-04-04] MEDS: LIDOCAINE 5% (PATCH) 1 EA PATCH TP SCH (09:04)
[2018-04-04] MEDS: Magnesium 1GM/D5W 100ML PREMIX 100 ML IV SCH ×2 (10:05→11:09)
[2018-04-04] MEDS: ACETAMINOPHEN 325 MG TABLET PO PRN ×2 (14:04→20:01)
[2018-04-04] MEDS: MONTELUKAST SODIUM (10MG) 10 MG TABLET GT SCH (17:12)
[2018-04-04 20:00] VITALS: BP 127/56
[2018-04-04] MEDS: cetrizine 10 MG TABLET PO SCH (22:00)
[2018-04-05 06:16] LABS: BASOPHILS % (AUTO) 0.4 % (0.0-2.0); EOSINOPHILS % (AUTO) 0.3 % (0.0-6.0); HEMATOCRIT 34 % (33-45); HEMOGLOBIN 11.5 g/dL (11.5-14.8); LYMPHOCYTES % (AUTO) 20.7 % (20.0-44.0); MEAN CORPUSCULAR HGB CONC 34 g/dl (31.0-36.0); MEAN CORPUSCULAR VOLUME 84 fL (82-100); MONOCYTES # (AUTO) 0.6 /CMM (0.1-1.30); MONOCYTES % (AUTO) 13.4 % (2.0-12.0); NEUTROPHILS # (AUTO) 3.1 /CMM (1.8-8.9); NEUTROPHILS % (AUTO) 65.2 % (43.0-81.0); PLATELET COUNT (AUTO) 392 /CMM (150-450); RDW COEFFICIENT OF VARIATION 14.1 (11.5-15.0); RED BLOOD CELL COUNT(AUTO) 4.05 MIL/uL (4.0-5.2); WHITE BLOOD COUNT (AUTO) 4.7 K/uL (4.3-11.0)
[2018-04-05 06:29] LABS: CREATININE 0.5 mg/dL (0.6-1.3); MAGNESIUM 1.8 mg/dL (1.8-2.4); PHOSPHORUS 3.9 mg/dL (2.5-4.9)
[2018-04-05] MEDS: PANTOPRAZOLE 40 MG TABLET.DR PO SCH (07:53)
[2018-04-05] MEDS: MUPIROCIN OINT 2% 22 GM TUBE SCH (08:33)
[2018-04-05] MEDS: LEVOTHYROXINE SODIUM 50 MCG TABLET PO SCH (08:34)
[2018-04-05] MEDS: LIDOCAINE 5% (PATCH) 1 EA PATCH TP SCH (08:34)
[2018-04-05] MEDS: ASCORBIC ACID 500 MG TABLET PO SCH (08:34)
[2018-04-05] MEDS: FERROUS SULFATE (325 MG) 325 MG/TAB TABLET PO SCH (08:34)
[2018-04-05] MEDS: BACI/NEOM/POLY B OINT PKT 1 UDPKT PACKET TP SCH (08:34)
[2018-04-05] MEDS: FLUTICASONE/VILANTEROL 1 EACH BLST.W.DEV IH SCH (08:34)
[2018-04-05] MEDS: LEVOTHYROXINE SODIUM 100 MCG TABLET PO SCH (08:35)
[2018-04-05] MEDS: CHOLECALCIFEROL 1,000 UNIT TABLET (VIT D3) PO SCH (08:35)
[2018-04-05] MEDS: DULOXETINE HCL 30 MG CAPSULE.DR PO SCH (08:35)
[2018-04-05] MEDS: DOCUSATE SODIUM 100 MG CAPSULE PO SCH ×2 (08:35→17:21)
[2018-04-05 08:38] VITALS: BP 140/63
[2018-04-05] MEDS: LOSARTAN POTASSIUM 25 MG TABLET PO SCH (08:38)
[2018-04-05] MEDS ORDERED: prednisoLONE ACET 1% OPHT DROP 5 ML BOTTLE EACHEYE SCH (09:00)
[2018-04-05] MEDS: ACETAMINOPHEN 325 MG TABLET PO PRN (15:41)
[2018-04-05] MEDS: MONTELUKAST SODIUM (10MG) 10 MG TABLET GT SCH (17:21)
== END 2018-04-05 18:20 | DRG 644 ==
LOC: MEDSG2 13:55
PROVIDERS: ADMIT Registered Nurse; ATTEND Psychiatry & Neurology Psychiatry
DX: E22.2 Syndrome of inappropriate secretion of antidiuretic hormone (principal); L03.116 Cellulitis of left lower limb; G20 Parkinson's disease; I50.32 Chronic diastolic (congestive) heart failure; I11.0 Hypertensive heart disease with heart failure; R45.851 Suicidal ideations; F32.9 Major depressive disorder, single episode, unspecified; T43.215A Adverse effect of selective serotonin and norepinephrine reuptake inhibitors, initial encounter; Y92.89 Other specified places as the place of occurrence of the external cause; J44.9 Chronic obstructive pulmonary disease, unspecified; M21.42 Flat foot [pes planus] (acquired), left foot; M79.7 Fibromyalgia; E03.9 Hypothyroidism, unspecified; F02.80 Dementia in other diseases classified elsewhere, unspecified severity, without behavioral disturbance, psychotic disturbance, mood disturbance, and anxiety; K21.9 Gastro-esophageal reflux disease without esophagitis; Z87.891 Personal history of nicotine dependence; L85.3 Xerosis cutis; L84 Corns and callosities; F39 Unspecified mood [affective] disorder
CPT/HCPCS: 36415; 80048-TC; 80061-TC; 83735-TC; 83880; 83935-TC; 84100-TC; 84300-TC; 84443-TC; 84550-TC; 85025-TC; 87081-TC; A4606; J1940; J3475